=== PATIENT | female | born 1950 | race Hispanic/Latino ===

== ENCOUNTER → 2017-11-29 | Outpatient (CLI) | payer OTHER ==
[~2017-11-29] MED LIST: ASPI-555 PO; FISH1CAP49 PO; FLUO-126 PO; FOLI-74 PO; HYDR12.54 PO; LEVO50TA11 PO; MELA1TAB8 PO; METO-408 PO; PANT40TA25 PO; ROSU5TAB PO
== END | disposition home or self-care (01) ==
LOC: SHCH 10:00
PROVIDERS: ATTEND Internal Medicine Cardiovascular Disease
DX: I87.2 Venous insufficiency (chronic) (peripheral) (principal)
CPT/HCPCS: 93970

== ENCOUNTER → 2021-09-05 | Outpatient (CLI) | payer OTHER ==
[~2021-09-05] MED LIST changes: -ASPI-555 PO; +ASPI-556 PO; -FLUO-126 PO; +FLUO20CA36 PO; +MELA1TAB52 PO; -MELA1TAB8 PO; -PANT40TA25 PO; +PANT40TA54 PO
== END | disposition home or self-care (01) ==
LOC: SHCH 10:00
PROVIDERS: ATTEND Internal Medicine Cardiovascular Disease
DX: I87.2 Venous insufficiency (chronic) (peripheral) (principal)
CPT/HCPCS: 93970

== ENCOUNTER → 2021-09-09 | Outpatient (CLI) | payer OTHER ==
[~2021-09-09] MED LIST changes: +REGADENOSON 0.4 MG/5 ML PF SYG IVP SCH
== END | disposition home or self-care (01) ==
LOC: SHCH 09:06
PROVIDERS: ATTEND Internal Medicine Cardiovascular Disease
DX: I25.119 Atherosclerotic heart disease of native coronary artery with unspecified angina pectoris (principal)
CPT/HCPCS: 78452; 93017; 96374; A9500 ×2; J2785

== ENCOUNTER → 2024-05-14 | Outpatient (CLI) | payer OTHER ==
[~2024-05-14] MED LIST changes: +FLUO-418 PO; -FLUO20CA36 PO; -REGADENOSON 0.4 MG/5 ML PF SYG IVP SCH
== END | disposition home or self-care (01) ==
LOC: RAH 13:22
PROVIDERS: ATTEND Internal Medicine
DX: M19.012 Primary osteoarthritis, left shoulder (principal); M25.519 Pain in unspecified shoulder
CPT/HCPCS: 73030

== ENCOUNTER → 2025-01-06 | Outpatient (CLI) | payer OTHER ==
--- NOTE | 2025-01-06 14:21 | HMCIMG ---
DEXA BONE DENSITY SURVEY HISTORY: Menopause COMPARISON: None FINDINGS: Bone densitometry study was performed. Bone mineral density of the lumbar spine is 1.090 gram per centimeter square which corresponds to a T score of 0.4 and a Z score of 2.7. Bone mineral density of the left hip is 1.283 grams per centimeter square which corresponds to a T score of 2.4 and a Z score of 4.1. IMPRESSION: 1. Normal bone mineral density of the lumbar spine and left hip.
--- NOTE | 2025-01-06 14:36 | HMCIMG ---
US RENAL SONOGRAM HISTORY: Renal cyst COMPARISON: None TECHNIQUE: Renal and bladder ultrasound study was performed. FINDINGS: The right kidney measures 13.5 x 6.3 x 5.6 cm. The left kidney measures 11 x 5.9 x 4.5 cm. No evidence of hydronephrosis is seen of either kidney. Both kidneys are seen. Bladder is poorly distended. IMPRESSION: 1. No hydronephrosis is seen.
== END | disposition home or self-care (01) ==
LOC: RAH 11:59
PROVIDERS: ATTEND Internal Medicine
DX: N28.1 Cyst of kidney, acquired (principal); N32.89 Other specified disorders of bladder; N95.9 Unspecified menopausal and perimenopausal disorder; Z87.448 Personal history of other diseases of urinary system
CPT/HCPCS: 76770; 77080